=== PATIENT | male | born 1990 | race Caucasian/White ===

== ENCOUNTER 2024-09-22 10:25 | Outpatient (CLI) | payer BC, SELFPAY | END 2024-09-22 10:26 | disposition home or self-care (01) | LOC: NFLDREF 09-24 02:50 | PROVIDERS: Visit Provider Physician Assistant Medical | DX: Z13.228 Encounter for screening for other metabolic disorders (principal); Z13.220 Encounter for screening for lipoid disorders; Z13.29 Encounter for screening for other suspected endocrine disorder | CPT/HCPCS: 80053; 80061; 84443 ==